=== PATIENT | male | born 1965 | race Caucasian/White ===

== ENCOUNTER 2018-05-25 18:42 | Emergency (ER) | payer BC, OTHER ==
[2018-05-25 18:49] VITALS: BP 135/87; PULSE 80; RESP 20; TEMP 98
--- NOTE | 2018-05-25 19:22 | ED ---
General Adult HPI - General Chief complaint: Head Injury Stated complaint: [facility] - fall, head injury Time Seen by Provider: 05/25/18 19:09 Source: patient, RN notes reviewed Mode of arrival: ambulatory Limitations: no limitations - History of Present Illness Initial comments: Patient 52-year-old male presenting to the emergency room today with a chief complaint of a head injury that occurred 2 hours ago. He does admit that he was at work when he slipped falling backwards hitting the back of his head. He states he was no loss consciousness. Patient states he tripped over something. Patient does admit to a headache. He currently rates the headache as 6/10. He states it is similar to headaches that is experienced in the past. Patient denies any other symptoms. He denies any other injuries. Patient denies any recent fever, chills, shortness of breath, chest pain, back pain, abdominal pain , nausea or vomiting, numbness or tingling, visual changes, or any other complaints. - Related Data Home Medications Medication Instructions Recorded Confirmed Mometasone/Formoterol [Dulera 200 2 puff INHALATION RT-BID 04/13/16 04/13/16 Mcg/5 Mcg Inhaler] Previous Rx's Medication Instructions Recorded metFORMIN HCL [Glucophage] 500 mg PO BID #20 tab 04/13/16 Allergies Allergy/AdvReac Type Severity Reaction Status Date / Time No Known Allergies Allergy Verified 05/25/18 18:49 Review of Systems ROS Statement: Those systems with pertinent positive or pertinent negative responses have been documented in the HPI. ROS Other: All systems not noted in ROS Statement are negative. Past Medical History Past Medical History: Asthma, Hypertension Additional Past Medical History / Comment(s): No HTN meds, BP controlled. History of Any Multi-Drug Resistant Organisms: None Reported Past Surgical History: No Surgical Hx Reported Past Anesthesia/Blood Transfusion Reactions: No Reported Reaction Past Psychological History: No Psychological Hx Reported Smoking Status: Never smoker Past Alcohol Use History: None Reported Past Drug Use History: None Reported - Past Family History Father] Family Medical History: Coronary Artery Disease (CAD), Diabetes Mellitus Mother Family Medical History: Cancer General Exam - General Exam Comments Initial Comments: General: The patient is awake and alert, in no distress, and does not appear acutely ill. Eye: Pupils are equal, round and reactive to light, extra-ocular movements are intact. No nystagmus. There is normal conjunctiva bilaterally. No signs of icterus. Ears, nose, mouth and throat: There are moist mucous membranes and no oral lesions. Neck: The neck is supple, there is no tenderness or JVD. Cardiovascular: There is a regular rate and rhythm. No murmur, rub or gallop is appreciated. Respiratory: Lungs are clear to auscultation, respirations are non-labored, breath sounds are equal. No wheezes, stridor, rales, or rhonchi. Musculoskeletal: Normal ROM, no tenderness. No tenderness in cervical spine. Strength 5/5. Sensation intact. Pulses equal bilaterally 2+. Neurological: A&O x 3. CN II-XII intact, There are no obvious motor or sensory deficits. Coordination appears grossly intact. Speech is normal. Normal finger nose testing. Normal rapid alternating movements. Strength 5/5 bilaterally both upper and lower extremities. Normal gait. Normal walking. Normal heel to glynn testing. Negative Romberg's. Skin: Skin is warm and dry and no rashes or lesions are noted. Psychiatric: Cooperative, appropriate mood & affect, normal judgment. Limitations: no limitations Course Vital Signs 05/25/18 18:47 Temperature 98.0 F Pulse Rate 80 Respiratory 20 Rate Blood Pressure 135/87 O2 Sat by Pulse 100 Oximetry Medical Decision Making - Medical Decision Making Patient has normal neurological exam here the emergency room. Options of computed tomography scan were discussed. Risk and benefits were discussed. Patient feels comfortable being discharged home. Signs of concussion were discussed in detail. Is advised to limit his physical activity. Advised to follow-up with the family doctor symptoms persist over the next 2 days return here to emergency room if any symptoms increase or worsen. Disposition Clinical Impression: Head injury Disposition: HOME SELF-CARE Condition: Good Instructions: Concussion (ED) Additional Instructions: Please follow-up the family doctor over the next 2 days if symptoms are still present. Please return to emergency room if any symptoms increase or worsen or for any other concerns. Is patient prescribed a controlled substance at d/c from ED?: No Referrals: Kike Garrison MD [Primary Care Provider] - 1-2 days Time of Disposition: 19:22
== END 2018-05-25 20:05 | disposition home or self-care (01) ==
LOC: EC 18:42
DX: S09.90XA Unspecified injury of head, initial encounter (principal); J45.909 Unspecified asthma, uncomplicated; Z79.51 Long term (current) use of inhaled steroids; Z79.899 Other long term (current) drug therapy; W18.09XA Striking against other object with subsequent fall, initial encounter; Y92.69 Other specified industrial and construction area as the place of occurrence of the external cause; Y99.0 Civilian activity done for income or pay
CPT/HCPCS: 99283

== ENCOUNTER → 2018-05-26 | Outpatient (CLI) | payer OTHER ==
--- NOTE | 2018-05-26 14:50 | CT ---
EXAMINATION TYPE: CT brain wo con DATE OF EXAM: 05/26/2018 COMPARISON: NONE HISTORY: Contusion of scalp, initial encounter. Posttraumatic headache. CT DLP: 1121 mGycm. Automated Exposure Control for Dose Reduction was Utilized. TECHNIQUE: CT scan of the head is performed without contrast. FINDINGS: There is no acute intracranial hemorrhage, mass effect, or midline shift identified. The ventricles and sulci are within normal limits in size. The globes are intact and the visualized sin uses are clear. Mild circumferential mucosal thickening of the inferior maxillary sinuses and mild mu cosal thickening also involving the left frontal sinuses, ethmoid sinuses and sphenoid sinuses. Masto id air cells and middle air cavities are well aerated. No scalp hematoma is noted. IMPRESSION: 1. No acute intracranial hemorrhage, mass effect, or midline shift is seen. If there is concern for s ubtle contusion or microhemorrhage MR with SWI or GRE sequences could be performed. 2. Mild pansinusitis.
== END | disposition home or self-care (01) ==
LOC: RADCTMAIN 13:52
PROVIDERS: ATTEND Emergency Medicine
DX: S00.03XA Contusion of scalp, initial encounter (principal); G44.319 Acute post-traumatic headache, not intractable
CPT/HCPCS: 70450

== ENCOUNTER → 2021-01-03 | Day surgery (SDC) | payer BC ==
[2020-12-31 12:14] VITALS: BMI 37.3
[~2021-01-03] MED LIST: GLUCAGON 1 MG/ML VIAL ONE; LACTATED RINGERS 1,000 ML IV ONE; LACTATED RINGERS 1,000 ML IV SCH; LIDOCAINE 1% (10MG/ML) FOR IV START INTRADERMA ONE; PROPOFOL 10 MG/ML 20 ML VIAL IV ONE
[2021-01-03 08:39] LABS: Glucose,Whole Blood 170 mg/dL (75-99)
[2021-01-03 08:46] VITALS: RESP 16; TEMP 98.4
--- NOTE | 2021-01-03 09:17 | P.GSHP ---
History of Present Illness H&P Date: 01/03/21 Chief Complaint: Screening colonoscopy This a 55-year-old male been sick for screening colonoscopy. Patient denies a significant GI complaints. Past Medical History Past Medical History: Asthma, Cancer, Diabetes Mellitus, Hypertension Additional Past Medical History / Comment(s): hx migraines, hx skin cancer History of Any Multi-Drug Resistant Organisms: None Reported Past Surgical History: No Surgical Hx Reported Additional Past Surgical History / Comment(s): wisdom teeth, skin cancer removed from nose Past Anesthesia/Blood Transfusion Reactions: No Reported Reaction Smoking Status: Never smoker - Past Family History Father] Family Medical History: Coronary Artery Disease (CAD), Diabetes Mellitus Mother Family Medical History: Cancer Additional Family Medical History / Comment(s): colon Medications and Allergies Home Medications Medication Instructions Recorded Confirmed Type Fluticasone/Salmeterol [Advair 1 inhalation PO BID 12/31/20 01/03/21 History 250-50 Diskus] Insulin Glargine/Lixisenatide 0 units SQ DAILY PRN 12/31/20 01/03/21 History [Soliqua 100 Unit-33 Mcg/ml Pen] Lysine [l-Lysine] 500 mg PO BID 12/31/20 01/03/21 History lisinopriL [Zestril] 2.5 mg PO DAILY 12/31/20 01/03/21 History metFORMIN HCL 1,000 mg PO BID 12/31/20 01/03/21 History Allergies Allergy/AdvReac Type Severity Reaction Status Date / Time No Known Allergies Allergy Verified 01/03/21 08:46 Surgical - Exam Vital Signs Temp Pulse Resp BP Pulse Ox 98.4 F 104 H 16 138/89 94 L 01/03/21 08:44 01/03/21 08:44 01/03/21 08:44 01/03/21 08:44 01/03/21 08:44 - General well developed, well nourished, no distress - Eyes PERRL - ENT normal pinna - Neck no masses - Respiratory normal expansion - Abdomen Abdomen: soft, non tender Results - Labs Abnormal Lab Results - Last 24 Hours (Table) 01/03/21 Range/Units 08:36 POC Glucose (mg/dL) 170 H (75-99) mg/dL Assessment and Plan Assessment: We'll perform screening colonoscopy
--- NOTE | 2021-01-03 09:37 | P.OP ---
Date of Procedure: 01/03/21 Preoperative Diagnosis: Screening colonoscopy Postoperative Diagnosis: Severe diverticulosis Procedure(s) Performed: Colonoscopy Anesthesia: MAC Surgeon: Ramírez Dalal Pathology: none sent Condition: stable Disposition: PACU Description of Procedure: The patient's placed on the endoscopy table in the lateral position. He received IV sedation. Digital rectal exam was performed which revealed no abnormalities. The prostate was symmetric without nodules. The flexible colonoscope was then placed patient anus and passed throughout the colon. In the sigmoid colon there is extensive diverticular changes. The colon appeared to be scarred. Several times made to advance the colonoscope however this wasn't possible. Glucagon given in the colon appeared to still be noncompliant. This point scope was withdrawn. There were significant diverticular changes. Scope was brought back the rectum and this appeared normal. Scope was withdrawn for patient. Patient is scheduled for a barium enema
[2021-01-03 10:18] VITALS: BP 109/75; PULSE 87
--- NOTE | 2021-01-03 13:49 | FL ---
EXAMINATION TYPE: FL barium enema w air contrast DATE OF EXAM: 01/03/2021 COMPARISON: NONE HISTORY: Failed colonoscopy earlier today. Diverticulosis per order. TECHNIQUE: A double contrast barium enema study is performed. A total of 3.07 minutes of fluoroscopi c time. 31 Spot images saved to PACS. FINDINGS: [employer] view of the abdomen shows overall non-obstructive bowel gas pattern. Few scattered b ilateral pelvic phleboliths noted. Enema study is performed. There is initial difficulty with taking pictures. There is some slow flow a t the sigmoid colon at level of diverticular disease. There is some delay flow in filling the right c olon. There is eventual flow to cecum with reflux into terminal ileum. Redundancy of sigmoid colon an d reflux into terminal ileum makes evaluation suboptimal particularly for polyps. Prominent diverticu losis of the sigmoid colon with poor distention but retention of normal mucosal fold pattern suggests patient has history of some chronic inflammatory change related to diverticulitis though patient den ies. No obstructing or constricting lesion clearly seen. Some additional scattered diverticula in the left colon. Normal contrast-filled appendix. Visualized distal ileal loops unremarkable. IMPRESSION: Suboptimal study as detailed above. Successful filling to the cecum noted. Moderate to s evere diverticulosis sigmoid colon, mild stricturing related to chronic inflammation felt present. No obstructing or constricting neoplasm present.
== END ==
LOC: ORWHC2ENDO 07:42
PROVIDERS: ATTEND Surgery
DX: Z12.11 Encounter for screening for malignant neoplasm of colon (principal); K57.30 Diverticulosis of large intestine without perforation or abscess without bleeding; Z53.8 Procedure and treatment not carried out for other reasons; J45.909 Unspecified asthma, uncomplicated; E11.9 Type 2 diabetes mellitus without complications; I10 Essential (primary) hypertension; G43.909 Migraine, unspecified, not intractable, without status migrainosus; Z82.49 Family history of ischemic heart disease and other diseases of the circulatory system; Z83.3 Family history of diabetes mellitus; Z79.4 Long term (current) use of insulin; Z79.51 Long term (current) use of inhaled steroids; Z79.899 Other long term (current) drug therapy
CPT/HCPCS: 74280; G0121; J1610; J2704; 45378